=== PATIENT | male | born 1980 | race Caucasian/White ===

== ENCOUNTER 2020-11-19 05:19 | Inpatient (IN) | payer SELFPAY ==
[~2020-11-19] VITALS: Ht 182.9 cm; Wt 91.3 kg
--- NOTE | 2020-11-19 05:22 | NUR ---
INITIAL PT CONTACT. PT PRESENTS TO ED VIA EMS C/O SUDDEN ONSET OF SOB, NAUSEA AND VOMITING X2 HOURS. PT REPORTS "SOME DRINKING LAST NIGHT BUT NOT IN EXCESS THEN NEXT THING I KNEW I COULDN'T BREATHE AND COULDN'T STOP VOMITING. IT FEELS LIKE MY THROAT IS SO IRRITATED AND BLEEDING." PT DENIES ANY ALLERGIES, RECENT CHANGES IN DAILY ACTIVITIES OR RECENT ILLNESS. PT GIVEN 4MG ZOFRAN ARMHOLE PRESSER WITH MINIMAL TO NO CHANGE IN NAUSEA. PT EXTREMELY ANXIOUS, UNABLE TO SIT STILL ON GURNEY. CONTINUALLY WRECHING WITH SMALL AMOUNTS OF BLOOD TINGED VOMIT PRESENT. PT ABLE TO SPEAK IN FULL SENTENCES AND WITH MINIMAL TO NO DISTRESS WITH EXHALATION. PT NOTED TO HAVE MODERATE DIFFICULTY WITH INHALATION. PT PLACED ON CONTINUOUS MONITORING, CALL LIGHT AND PERSONAL BELONGINGS WITHIN REACH.
[2020-11-19] MEDS ORDERED: methylPREDNISolone SOD SUCC 125 MG/2 ML IVPush ONE (05:31)
[2020-11-19] MEDS ORDERED: ONDANSETRON 2MG/ML, 2ML ONE ×2 (05:36→09:16)
[2020-11-19] MEDS ORDERED: FAMOTIDINE 20 MG/2 ML ONE (05:36)
[2020-11-19] MEDS ORDERED: methylPREDNISolone SOD SUCC 125 MG/2 ML ONE (05:36)
[2020-11-19] MEDS ORDERED: ALBUTEROL SULFATE 2.5MG/0.5ML ONE (05:38)
--- NOTE | 2020-11-19 05:55 | NUR ---
REPORT TO EDEN CANTU. PT MOVED FROM ED ROOM 21 TO ED TRAUMA 4. PLACED ON CONTINUOUS MONITORING.
--- NOTE | 2020-11-19 05:56 | NUR ---
pt moved from room 21 to room T4. assumed care of pt. pt here for retching/vomiting and swelling sensation to neck. pt has been medicated without relief. pt is speaking but voice sounds strained. no family at bedside. Dr. Nguyen at bedside for eval
[2020-11-19] MEDS ORDERED: HALOPERIDOL 5 MG/ML ONE (05:59)
[2020-11-19] MEDS ORDERED: SODIUM CHLORIDE 0.9% 1,000ML IVBOLUS ONE ×2 (06:00→09:30)
[2020-11-19] MEDS ORDERED: ONDANSETRON 2MG/ML, 2ML IVPush ONE ×2 (06:00→09:30)
[2020-11-19] MEDS ORDERED: SODIUM CHLORIDE FLUSH 10ML SYR IVF ONE (06:00)
[2020-11-19] MEDS ORDERED: RACEPINEPHRINE INH 2.25%, 0.5ML NPPB ONE (06:00)
[2020-11-19] MEDS ORDERED: FAMOTIDINE 20 MG/2 ML IVPush ONE (06:00)
--- NOTE | 2020-11-19 06:01 | NUR ---
x-ray at bedside
--- NOTE | 2020-11-19 06:15 | NUR ---
bedside x-ray completed. pt medicated
--- NOTE | 2020-11-19 06:17 | NUR ---
pt given suction to assist in control of his secretions. pt states he is unable to swallow
[2020-11-19] MEDS ORDERED: BENZOCAINE AEROSOL SPRAY 20%, 60ML ONE (06:22)
[2020-11-19] MEDS ORDERED: HALOPERIDOL 5 MG/ML IM ONE (06:30)
[2020-11-19] MEDS ORDERED: OMNIPAQUE 350 MG/ML, 100ML BOTTLE ONE (06:41)
--- NOTE | 2020-11-19 06:41 | NUR ---
pt has been accompanied to CT by li RN and returned to room. vomiting has stopped. O2 level decreased. pt resting on his side on position of comfort. bear paws applied for comfort. lab at bedside to draw. IV fluids infusing
--- NOTE | 2020-11-19 06:54 | NUR ---
no vomiting noted at this time. no respiratory distress awaiting test results and CT results report to Joselo CANTU
[2020-11-19] MEDS ORDERED: LORazepam 2 MG/ML, 1ML ONE (06:55)
[2020-11-19] MEDS ORDERED: LORazepam 2 MG/ML, 1ML IVPush ONE (07:00)
--- NOTE | 2020-11-19 07:00 | NUR ---
Report from Sybil RN. From the door patient withOUT obvious respiratory distress However with closer exam voice muffled and patient "barely able to swallow any of my spit." Lung sounds clear & vss on 3.5liters oxymask Patient quite anxious/standing up/moving all over bed. Reports "whatever you gave me is making me nuts." ERP aware. ERP would like to give ativan. Radiology Clerk clarified (resp suppressant)- erp would like it given as anxiety more harmful to airway that sedative Radiology Clerk agreeable. Glidescope/cric kits at bedside. will continue to monitor
[2020-11-19 07:28] LABS: ALBUMIN 3.5 g/dL (3.4-5.0); ANION GAP 12 mmol/L (5-15); CALCIUM 8.2 mg/dL (8.5-10.1); CHLORIDE 103 mmol/L (98-107)
[2020-11-19 07:32] LABS: ALANINE AMINOTRANSFERASE 78 U/L (12-78); ALKALINE PHOSPHATASE 79 U/L (45-117); BILIRUBIN,TOTAL 0.6 mg/dL (0.2-1.0); CREATININE 1.09 mg/dL (0.7-1.3); TOTAL PROTEIN 7.1 g/dL (6.4-8.2)
[2020-11-19 07:40] LABS: BASOPHILS % (AUTO) 0 % (0-1); EOSINOPHILS % (AUTO) 0 % (1-7); LYMPHOCYTES % (AUTO) 4 % (22-44); MEAN CORPUSCULAR HEMOGLOBIN 35.3 pg (27.5-34.5); MEAN CORPUSCULAR HGB CONC 35.2 g/dL (33.2-36.2); MEAN PLATELET VOLUME 8.5 fL (7.4-10.4); MONOCYTES % (AUTO) 3 % (2-9); NEUTROPHILS % (AUTO) 93 % (42-75); PLATELET COUNT 290 x10^3/uL (130-400); RED BLOOD COUNT 4.57 x10^6/uL (4.38-5.82); RED CELL DISTRIBUTION WIDTH 15.1 % (9.4-14.8)
[2020-11-19 07:57] LABS: AMPHETAMINE SCREEN, URINE Negative (Negative); BARBITURATE SCREEN, URINE Negative (Negative); BENZODIAZEPINE SCREEN, URINE Negative (Negative); CANNABINOID SCREEN, URINE Negative (Negative); COCAINE SCREEN, URINE Negative (Negative); METHADONE SCREEN, URINE Negative (Negative); OPIATE SCREEN, URINE Negative (Negative)
--- NOTE | 2020-11-19 08:06 | NUR ---
patient calm, wob unlabored. vss. ENT on the way to assess
--- NOTE | 2020-11-19 09:00 | NUR ---
report to elba villeda
--- NOTE | 2020-11-19 09:05 | NUR ---
RECEIVED REPORT FROM ALONDRA ERICKSON. PT RESTING ON GURESE. JUAN. PT C/O PAIN 02/13. ERP DR. EWING NOTIFIED. NEW ORDERS PLACED.
[2020-11-19] MEDS ORDERED: PROMETHAZINE 25 MG/ML, 1ML ONE (09:08)
[2020-11-19] MEDS ORDERED: HYDROmorphone 1 MG/ML, 1ML INJ ONE (09:08)
[2020-11-19] MEDS: PROMETHAZINE 25 MG/ML, 1ML IM ONE ×2 (09:12→09:20)
--- NOTE | 2020-11-19 09:21 | NUR ---
DISCUSSED W/ ERP DR. EWING IN REGARDS TO PT'S LACTIC ACID 6.3 AND WBC 14.9 PER ERP HOLD OFF ON 30 ML/KG BOLUS AND HAVE LAB REDRAW PT LACTIC ACID.
[2020-11-19] MEDS ORDERED: AMPICILLIN/SULBACTAM 3 GM in SODIUM CHLORIDE 0.9% 100 ML IV SCH (09:30)
[2020-11-19] MEDS ORDERED: HYDROmorphone 1 MG/ML, 1ML INJ IV ONE (09:30)
--- NOTE | 2020-11-19 09:39 | NUR ---
BC X 2 DRAWN PRIOR TO START OF IV ABX.
--- NOTE | 2020-11-19 10:01 | NUR ---
REPORT GIVEN TO DELMIS COOLEY RN. ALL QUESTIONS ANSWERED. ED MANAGER LOAN AWARE OF NEED FOR RN TO TRANSPORT PT UPSTAIRS.
[2020-11-19] MEDS ORDERED: morphine SULFATE 10 MG/ML, 1ML IVPush PRN (11:00)
[2020-11-19] MEDS ORDERED: ACETAMINOPHEN 325 MG TABLET PO PRN (11:00)
[2020-11-19] MEDS ORDERED: LORazepam 2 MG/ML, 1ML IVPush PRN (11:00)
[2020-11-19] MEDS ORDERED: BENZOCAINE AEROSOL SPRAY 20%, 60ML TP ONE (11:00)
[2020-11-19] MEDS ORDERED: ONDANSETRON 2MG/ML, 2ML IVPush PRN (11:00)
[2020-11-19] MEDS ORDERED: SODIUM CHLORIDE 0.9% 1,000 ML IV SCH (11:00)
[2020-11-19] MEDS: ENOXAPARIN 40 MG/0.4 ML SQ SCH (11:57)
[2020-11-19] MEDS: methylPREDNISolone SOD SUCC 125 MG/2 ML IVPush SCH ×2 (11:57→17:49)
[2020-11-19] MEDS ORDERED: POTASSIUM CHLORIDE 20 MEQ, MAGNESIUM SULFATE 1 GM, THIAMINE 200 MG, FOLIC ACID 1 MG, MV... IV SCH (12:30)
[2020-11-19] MEDS ORDERED: DEXMEDETOMIDINE 200 MCG in SODIUM CHLORIDE 0.9% 48 ML IV PRN (12:30)
[2020-11-19] MEDS ORDERED: PHENOBARBITAL SODIUM 780 MG in SODIUM CHLORIDE 0.9% 50 ML IVPB ONE (12:30)
[2020-11-19] MEDS ORDERED: PHARMACY INSTRUCTION MC PRN ×4 (12:30)
[2020-11-19] MEDS ORDERED: ONDANSETRON 2MG/ML, 2ML IV PRN (12:30)
[2020-11-19] MEDS ORDERED: POTASSIUM CHLORIDE 20 MEQ TAB.ER.PRT PO ONE (13:30)
[2020-11-19] MEDS: AMPICILLIN/SULBACTAM 3 GM in SODIUM CHLORIDE 0.9% 100 ML IV SCH ×2 (15:56→22:08)
[2020-11-19 16:29] LABS: AMPHETAMINE SCREEN, URINE Negative (Negative); BARBITURATE SCREEN, URINE Negative (Negative); BENZODIAZEPINE SCREEN, URINE Negative (Negative); CANNABINOID SCREEN, URINE Negative (Negative); COCAINE SCREEN, URINE Negative (Negative); METHADONE SCREEN, URINE Negative (Negative); OPIATE SCREEN, URINE Positive (Negative)
[2020-11-19] MEDS: POTASSIUM CHLORIDE 20 MEQ TAB.ER.PRT PO SCH (17:49)
[2020-11-19] MEDS ORDERED: PHENOBARBITAL 20 MG/5 ML ORAL SOL PO SCH (18:00)
[2020-11-19] MEDS: PHENOBARBITAL 20 MG/5 ML ORAL SOL PO SCH (18:29)
[2020-11-19] MEDS ORDERED: MELATONIN 5 MG TABLET PO ONE (21:00)
[2020-11-20] MEDS: methylPREDNISolone SOD SUCC 125 MG/2 ML IVPush SCH ×2 (00:35→05:41)
[2020-11-20] MEDS: AMPICILLIN/SULBACTAM 3 GM in SODIUM CHLORIDE 0.9% 100 ML IV SCH ×4 (03:41→21:47)
[2020-11-20 04:37] LABS: BASOPHILS % (AUTO) 0 % (0-1); EOSINOPHILS % (AUTO) 0 % (1-7); LYMPHOCYTES % (AUTO) 4 % (22-44); MEAN CORPUSCULAR HEMOGLOBIN 35.2 pg (27.5-34.5); MEAN CORPUSCULAR HGB CONC 35.7 g/dL (33.2-36.2); MEAN PLATELET VOLUME 8.6 fL (7.4-10.4); MONOCYTES % (AUTO) 3 % (2-9); NEUTROPHILS % (AUTO) 93 % (42-75); PLATELET COUNT 243 x10^3/uL (130-400); RED BLOOD COUNT 4.23 x10^6/uL (4.38-5.82); RED CELL DISTRIBUTION WIDTH 14.9 % (9.4-14.8)
[2020-11-20 04:51] LABS: ALANINE AMINOTRANSFERASE 63 U/L (12-78); ALBUMIN 3.4 g/dL (3.4-5.0); ANION GAP 5 mmol/L (5-15); CALCIUM 8.6 mg/dL (8.5-10.1); CHLORIDE 104 mmol/L (98-107); CREATININE 0.88 mg/dL (0.7-1.3)
[2020-11-20 04:55] LABS: ALKALINE PHOSPHATASE 74 U/L (45-117); BILIRUBIN,TOTAL 1.8 mg/dL (0.2-1.0)
[2020-11-20] MEDS: PHENOBARBITAL 20 MG/5 ML ORAL SOL PO SCH ×2 (05:42→18:27)
[2020-11-20] MEDS: POTASSIUM CHLORIDE 20 MEQ TAB.ER.PRT PO SCH (08:19)
[2020-11-20] MEDS ORDERED: VANCOMYCIN PER PHARMACY MC PRN (09:30)
[2020-11-20] MEDS ORDERED: VANCOMYCIN PMX 1GM/200ML 200 ML IV ONE (09:30)
[2020-11-20] MEDS: FOLIC ACID 1 MG TABLET PO SCH (10:28)
[2020-11-20] MEDS: MULTIVITAMIN 1 TABLET PO SCH (10:28)
[2020-11-20] MEDS: DEXAMETHASONE 4 MG/ML, 1ML IVPush SCH (10:29)
[2020-11-20] MEDS: THIAMINE 100MG TABLET PO SCH ×2 (10:29→21:47)
[2020-11-20] MEDS: ENOXAPARIN 40 MG/0.4 ML SQ SCH (10:29)
[2020-11-20] MEDS ORDERED: VANCOMYCIN 2,200 MG in SODIUM CHLORIDE 0.9% 500 ML IV ONE (10:30)
[2020-11-20] MEDS ORDERED: PHARMACOKINETIC CONSULTATION MC ONE (10:30)
[2020-11-20] MEDS ORDERED: PHARMACOKINETIC MONITORING MC PRN (10:30)
[2020-11-20] MEDS: VANCOMYCIN 1,700 MG in SODIUM CHLORIDE 0.9% 250 ML IV SCH (19:35)
[2020-11-20 21:55] VITALS: BP 156/91
[2020-11-20] MEDS ORDERED: QUETIAPINE 100MG TABLET PO ONE (23:30)
[2020-11-21] MEDS: AMPICILLIN/SULBACTAM 3 GM in SODIUM CHLORIDE 0.9% 100 ML IV SCH ×2 (03:11→10:20)
[2020-11-21 03:15] VITALS: BP 122/74
[2020-11-21] MEDS: VANCOMYCIN 1,700 MG in SODIUM CHLORIDE 0.9% 250 ML IV SCH (03:39)
[2020-11-21 05:53] LABS: ALBUMIN 3.2 g/dL (3.4-5.0); ANION GAP 4 mmol/L (5-15); CALCIUM 8.6 mg/dL (8.5-10.1); CHLORIDE 105 mmol/L (98-107)
[2020-11-21 06:02] LABS: BASOPHILS % (AUTO) 0 % (0-1); EOSINOPHILS % (AUTO) 0 % (1-7); LYMPHOCYTES % (AUTO) 21 % (22-44); MEAN CORPUSCULAR HEMOGLOBIN 35.6 pg (27.5-34.5); MEAN CORPUSCULAR HGB CONC 35.6 g/dL (33.2-36.2); MONOCYTES % (AUTO) 7 % (2-9); NEUTROPHILS % (AUTO) 72 % (42-75); PLATELET COUNT 222 x10^3/uL (130-400); RED BLOOD COUNT 3.94 x10^6/uL (4.38-5.82); RED CELL DISTRIBUTION WIDTH 14.7 % (9.4-14.8)
[2020-11-21] MEDS: PHENOBARBITAL 20 MG/5 ML ORAL SOL PO SCH (06:02)
[2020-11-21 06:23] LABS: ALANINE AMINOTRANSFERASE 67 U/L (12-78); ALKALINE PHOSPHATASE 60 U/L (45-117); CREATININE 0.87 mg/dL (0.7-1.3); TOTAL PROTEIN 6.5 g/dL (6.4-8.2)
[2020-11-21 07:58] VITALS: BP 160/105
[2020-11-21] MEDS: THIAMINE 100MG TABLET PO SCH (08:09)
[2020-11-21] MEDS: DEXAMETHASONE 4 MG/ML, 1ML IVPush SCH (08:10)
[2020-11-21] MEDS: FOLIC ACID 1 MG TABLET PO SCH (08:10)
[2020-11-21] MEDS: MULTIVITAMIN 1 TABLET PO SCH (08:10)
[2020-11-21] MEDS: ENOXAPARIN 40 MG/0.4 ML SQ SCH (12:11)
[2020-11-21] MEDS ORDERED: VANCOMYCIN PER PHARMACY MC PRN (12:30)
[2020-11-21] MEDS ORDERED: PHARMACOKINETIC MONITORING MC PRN (12:30)
[2020-11-21] MEDS ORDERED: FOLI1TAB32 PO (12:47)
[2020-11-21] MEDS ORDERED: MULT-482 PO (12:47)
[2020-11-21] MEDS ORDERED: AMOX1TAB12 PO (12:47)
[2020-11-21] MEDS ORDERED: ACID1TAB7 PO (12:47)
[2020-11-21] MEDS ORDERED: THIA100T67 PO (12:47)
[2020-11-21] MEDS ORDERED: METH4TAB2 PO (12:47)
[2020-11-21] MEDS ORDERED: VANCOMYCIN 1,700 MG in SODIUM CHLORIDE 0.9% 250 ML IV SCH (15:00)
[2020-11-21] MEDS ORDERED: LACTOBACILLUS CHEW TABLET PO SCH (16:00)
[2020-11-21] MEDS ORDERED: PHENOBARBITAL 20 MG/5 ML ORAL SOL PO SCH (18:00)
[2020-11-21] MEDS ORDERED: AMOXICILLIN/CLAV 875-125MG TABLET PO SCH (21:00)
== END 2020-11-21 14:01 | disposition home or self-care (01) | DRG 177 ==
LOC: ED 08:58 → EDIP 09:02 → CCU 10:09 → 3N 11-20 13:03
PROVIDERS: ADMIT Internal Medicine; ATTEND Internal Medicine
PROC: 0BH17EZ Insertion of Endotracheal Airway into Trachea, Via Natural or Artificial Opening (ICD-10-PCS; principal; 2020-11-19)
DX: J69.0 Pneumonitis due to inhalation of food and vomit (principal); J96.01 Acute respiratory failure with hypoxia; K92.0 Hematemesis; J05.10 Acute epiglottitis without obstruction; E87.2 Acidosis; F10.231 Alcohol dependence with withdrawal delirium; D72.828 Other elevated white blood cell count; D75.89 Other specified diseases of blood and blood-forming organs; E87.6 Hypokalemia; F12.90 Cannabis use, unspecified, uncomplicated; F14.10 Cocaine abuse, uncomplicated; F17.200 Nicotine dependence, unspecified, uncomplicated; F41.9 Anxiety disorder, unspecified; K21.9 Gastro-esophageal reflux disease without esophagitis; G47.00 Insomnia, unspecified; Z79.899 Other long term (current) drug therapy; Z79.891 Long term (current) use of opiate analgesic; Z79.01 Long term (current) use of anticoagulants
CPT/HCPCS: 36415; 70360; 70491; 71045; 80053; 80202; 80307; 82607; 83605; 83735; 84100; 84443; 85025; 87040; 87081; 94640; 96361; 96374; 96375; 99292; G0378; J0295; J1100; J1170; J1650; J2405; J2550; J2560; J3370; J3411; J3475; J3480; Q9967; J1630; J2060; J2930; J7030; J7040; J7050